=== PATIENT | female | born 1960 | race Caucasian/White ===

== ENCOUNTER 2021-08-22 15:32 | Emergency (ER) | payer OTHER ==
[~2021-08-22] VITALS: Ht 154.9 cm; Wt 63.0 kg
[2021-08-22 15:40] VITALS: BP 162/101
== END 2021-08-22 18:59 | disposition home or self-care (01) ==
LOC: ER 15:32
DX: F41.9 Anxiety disorder, unspecified (principal)
CPT/HCPCS: 99281

== ENCOUNTER 2021-08-29 15:54 | Emergency (ER) | payer OTHER ==
[~2021-08-29] VITALS: Ht 162.6 cm; Wt 79.0 kg
[2021-08-29] MEDS ORDERED: DOCU-138 MT (21:07)
[2021-08-29] MEDS ORDERED: HYDR-4001 MT (21:07)
[2021-08-29] MEDS ORDERED: HYDR26CR2 TP (21:07)
[2021-08-29 21:17] VITALS: BP 106/75
== END 2021-08-29 21:17 | disposition home or self-care (01) ==
LOC: ER 15:54
DX: K64.4 Residual hemorrhoidal skin tags (principal)
CPT/HCPCS: 99281